=== PATIENT | female | born 1945 | race Caucasian/White ===

== ENCOUNTER 2024-02-15 15:09 | Outpatient (REF) | payer MEDICARE, OTHER, SELFPAY ==
[2024-02-15 15:41] LABS: MANUAL DIFF FLAG NO
[2024-02-15 17:03] LABS: Basophils Absolute Auto 0.1 X10*3/uL (0.0-0.2); Basophils Percent Auto 0.5 % (0-2); Eosinophils Percent Auto 0.4 % (0-4); Hematocrit 42.7 % (37.0-47.0); Hemoglobin 13.3 g/dl (12.0-16.0); Imm Gran Abs Auto 0.06 X10*3/uL (0.00-0.03); Imm Gran Pct Auto 0.6 % (0.0-0.4); Lymphocytes Absolute Auto 1.1 X10*3/uL (1.2-4.9); Mean Corpuscular HGB Conc 31.1 g/dl (31.0-35.0); Mean Corpuscular Hemoglobin 29.3 pg (27.0-33.0); Mean Corpuscular Volume 94.1 fL (80.0-98.0); Monocytes Absolute Auto 0.2 X10*3/uL (0.1-1.2); Monocytes Percent Auto 1.9 % (2-11); Neutrophils Absolute Auto 9.4 x10*3/uL (2.0-8.3); Neutrophils Percent Auto 86.6 % (45-73); Platelet Count 255 X10*3/uL (160-400); Red Blood Count 4.54 X10*6/uL (4.20-5.50); Red Cell Distribution Width 15.3 % (11.0-16.0); White Blood Count 10.9 X10*3/uL (4.8-10.8)
[2024-02-15 17:33] LABS: Alanine Aminotransferase 16 U/L (0-31); Albumin Level 4.1 g/dL (3.5-5.0); Alkaline Phosphatase 60 U/L (39-117); Anion Gap 19 (12-20); Aspartate Amino Transferase 23 U/L (5-31); Bilirubin Direct 0.2 mg/dL (0.0-0.5); Bilirubin Total 0.4 mg/dL (0.0-1.0); Blood Urea Nitrogen 15 mg/dL (9-16); Calcium 10.1 mg/dL (8.4-10.2); Carbon Dioxide 25 mmol/L (22-29); Chloride 103 mmol/L (96-108); Estimated Glomerular Filt Rate 47; Glucose Random 184 mg/dL (60-115); Potassium 4.6 mmol/L (3.3-5.1); Sodium 142 mmol/L (135-145); Total Protein 7.3 g/dL (6.5-8.0)
[2024-02-15 17:42] LABS: Erythrocyte Sedimentation Rate 25 MM/HR (0-20)
[2024-02-15 17:51] LABS: Thyroid Stimulating Hormone 0.82 uIU/mL (0.32-4.0)
[2024-02-15 18:07] LABS: Folate 10.3 ng/mL (> or = 4.0); Vitamin B12 224 pg/mL (200-900)
[2024-02-20 16:09] LABS: Vitamin B1 13 nmol/L (8-30)
== END 2024-02-15 15:10 | disposition home or self-care (01) ==
LOC: HO.LAB 15:09
PROVIDERS: PCP Family Medicine; Visit Provider Psychiatry & Neurology Neurology
DX: I63.9 Cerebral infarction, unspecified (principal); M31.6 Other giant cell arteritis
CPT/HCPCS: 36415; 80053; 82248; 82607; 82746; 84425; 84443; 85025; 85652

== ENCOUNTER 2025-01-23 08:10 | Outpatient (AMB) | payer BC, OTHER, SELFPAY ==
--- NOTE | 2025-01-23 08:25 | A.OFFVIS_ITS ---
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/cardiomyopathy Portable Trackman Required: No Accompanied by: Daughter Allergies gabapentin Allergy (Severe, Verified 01/23/25 08:27) Vomiting meperidine (From Demerol) Allergy (Severe, Verified 01/23/25 08:27) Vomiting Medication List - Last Reconciled 01/23/25 by Sebas Horn MD atorvastatin (Lipitor) 10 mg PO DAILY bupropion HCl XL (Wellbutrin XL) 150 mg PO QAM cyanocobalamin (vitamin B-12) 1,000 mcg PO DAILY lisinopril 10 mg PO DAILY metformin ER (Fortamet) 500 mg PO DAILY metoprolol succinate ER 25 mg PO DAILY prednisone 10 mg PO DAILY venlafaxine ER 75 mg PO DAILY HPI Comments Details: Nae is here for evaluation regarding cardiomyopathy. It seems she had an e chocardiogram at [facility] last year and that showed LVEF of 35- 40%. Patient comes in a wheelchair with the daughter. It seems she has gait instability with falls. Many comorbidities listed including interstitial lung disease, temporal arteritis among others. She is on long-term steroids. Apparently, there was a PICC line complication from many years ago in [place] when patient developed a stroke and not entirely clear if she had a cardiac arrest or not but patient states that she almost . Currently, she has moved from [place] to [place] and hence seeks local cardiology care. Patient cannot state if she has pre-existing cardiomyopathy or not and she does not know much about this. However, it does not appear that she has had any clear cardiology evaluation. In fact daughter states that the 1st time she seeing a commissioner of internal revenue. Hence unknown if the cardiomyopathy is old or not. She states she gets short of breath with activity. No clear-cut anginal-type chest pains. No leg swelling. No prior coronary disease or myocardial infarction. However, it seems she has had some strokes which were apparently a complication from the PICC line placement from years ago. [facility] Medical History (Updated 01/23/25 @ 09:19 by Sebas Horn MD) Breast cancer Cerebrovascular accident Bronchiectasis Osteopenia Bilateral cataracts Insomnia Mixed hyperlipidemia Hypothyroidism Hypertension Temporal arteritis Interstitial lung disease Cardiomyopathy Family History (Updated 01/23/25 @ 08:36 by Sonia Dunham [facility]) Mother No problems noted. Father No problems noted. Social History (Updated 01/23/25 @ 08:36 by Sonia Dunham [facility]) Alcohol intake: never Patient Tobacco Use Status: Never used Tobacco Review of Systems Const Denies chills, Denies fatigue, Denies fever(s), Denies frequent falls, Denies weakness, Denies weight gain and Denies weight loss ENT Denies dizziness Card Denies chest pain, Denies leg edema, Denies lightheadedness, Denies palpitations, Denies dyspnea, Denies dyspnea on exertion and Denies orthopnea Resp Denies cough, Denies dyspnea and Denies dyspnea on exertion GI Denies bloating and Denies change in bowel habits Musc Denies muscle weakness, Denies numbness and Denies tingling Neuro Denies dizziness, Denies frequent falls, Denies numbness, Denies tingling and Denies weakness Endo Denies fatigue and Denies palpitations Physical Exam Vital Signs: Last Vital Signs Pulse 79 01/23/25 08:26 BP 130/74 01/23/25 08:26 Const General: comfortable and no acute distress Orientation/consciousness: patient oriented x3 HEENT Other: Unremarkable Head: Yes normal to inspection Neck Neck: Yes normal visual inspection Chest Chest palpation & inspection: normal inspection of the chest Resp Auscultation: crackles Cardio Palpation: normal PMI Heart sounds: S1 normal heart sound present, S2 normal heart sound present, no gallops, no murmurs and no rubs GI Palpation (GI): Soft to palpation Back/Spine/Pelvis Other: unremarkable Skin General skin exam: no rashes or lesions noted Neuro General: patient oriented x3 Extrem General: Yes normal to inspection Psych Mental Status: mental status grossly normal Office Procedures EKG Details: EKG with underlying sinus rhythm at 79/Min; right bundle-branch block and left anterior fascicular [place] [id number], Complete Assessment & Plan Assessment & Plan (1) Cardiomyopathy: Code(s): I42.9 - Cardiomyopathy, unspecified Category: Medical Plan In the echocardiogram from 2023 at [facility], LVEF is 35-40%. Mitral annular calcification with mild regurgitation. In the comparison notes, mentioned as no significant change from 2019 and 2018. Hence suspect cardiomyopathy may indeed be longstanding. Not entirely clear if she ever had ischemic workup in the past as there is none she can recall. We will repeat the echocardiogram to reassess LVEF. Obtain pharmacological stress test with Lexiscan as she is not going to be able to exercise on the treadmill. We also discussed about symptoms and signs of congestive heart failure and what to look out for. Currently, she is not in any heart failure. We will follow her up after the above testing. Discussion Notes During the visit, we discussed the need for a stress test to evaluate the patient's cardiac function further, which may lead to an angiogram or catheterization if blockages are suspected. We also reviewed the patient's history of temporal arteritis and the complications arising from long-term prednisone use, emphasizing the importance of monitoring these side effects. The patient was informed about the need to monitor respiratory symptoms due to interstitial lung disease and emphysema, and to seek medical attention if symptoms worsen. Patient was informed and verbally consented to the use of an ambient scribe for clinic note documentation during this visit. Orders: Orders CA echo transthoracic complete Today I42.9 - Cardiomyopathy, unspecified CA lexiscan stress w kasie Today I42.9 - Cardiomyopathy, unspecified NM cardiolite stress test Today I42.9 - Cardiomyopathy, unspecified Patient Instructions: - Undergo echocardiogram and stress test to check heart function. - Monitor for any new or worsening symptoms, especially related to breathing or fluid buildup. - follow-up to discuss results. Coding Level of Care Code New Pt Level 4 (00107) Complex EM visit Add On G2211 Diagnoses Cardiomyopathy I42.9 CPT Codes EKG - CPT: 84445-[id number], Complete ([id number])
[2025-01-23 08:26] VITALS: BP 130/74; PULSE 79
== END 2025-01-23 09:01 | disposition home or self-care (01) ==
LOC: HO.HCS 08:10
PROVIDERS: PCP Family Medicine; Visit Provider Internal Medicine
DX: I42.9 Cardiomyopathy, unspecified (principal)
CPT/HCPCS: 93010; 99204

== ENCOUNTER → 2025-01-23 08:10 | Outpatient (BNVA) | payer BC, OTHER, SELFPAY | PROVIDERS: PCP Family Medicine; Visit Provider Internal Medicine | DX: I42.9 Cardiomyopathy, unspecified (principal) | CPT/HCPCS: 93005 ==